=== PATIENT | male | born 1955 | race Caucasian/White ===

== ENCOUNTER 2018-07-15 01:31 | Emergency (ER) | payer MEDICAID ==
[~2018-07-15 01:31] MED LIST: TDAP Vaccine 0.5 mL Syr IM ONE
--- NOTE | 2018-07-15 05:50 | ED PDOC ---
Arrival/HPI - General Chief Complaint: Trauma Time Seen by Provider: 07/15/18 05:43 Historian: Patient - History of Present Illness Narrative History of Present Illness (Text): 07/15/18 05:50 62 year old male, whose past medical history includes CAD, COPD, and Hypertension, presents to the emergency department with head injury. Patient states he was at work when he became dizzy and fell face-first unto a desk. He states he then got up and felt dizzy again and fell backwards and hit his head on a metal display case. Patient began feeling pain and bleeding. He reports using coffee grounds to slow the bleeding, placing them on his cheek & the back of his head. Patient denies any current dizziness, shortness of breath, chest pain, leg pain, or any other complaints. Time/Duration: Prior to Arrival Symptom Course: Unchanged Quality: Throbbing Severity Level: Moderate Activities at Onset: Rest Context: Work Past Medical History - Provider Review Nursing Documentation Reviewed: Yes - Travel History Have you recently traveled outside [place] w/in the past 3 mons?: No Family/Social History - Physician Review Nursing Documentation Reviewed: Yes Family/Social History: No Known Family HX Allergies/Home Meds Allergies/Adverse Reactions: Allergies No Known Allergies Allergy (Verified 07/15/18 12:44) Review of Systems - Physician Review All systems were reviewed & negative as marked: Yes - Review of Systems Respiratory: absent: SOB Cardiovascular: absent: Chest Pain, Calf Pain Neurological: absent: Dizziness Physical Exam Temperature: Afebrile Blood Pressure: Normal Pulse: Regular Appearance: Positive for: Non-Toxic, Comfortable Mental Status: Positive for: Alert and Oriented X 3 - Systems Exam Head: Present: Contusion, Abrasion (Skin avulsion tear noted near L yazidi), Laceration (2.0cm laceration present near left side of occiput. ) Pupils: Present: PERRL Extroacular Muscles: Present: EOMI Conjunctiva: Present: Normal Mouth: Present: Moist Mucous Membranes Neck: Present: Normal Range of Motion Respiratory/Chest: Present: Clear to Auscultation, Good Air Exchange. No: Respiratory Distress, Accessory Muscle Use Cardiovascular: Present: Regular Rate and Rhythm, Normal S1, S2. No: Murmurs Abdomen: No: Tenderness, Distention, Peritoneal Signs Back: Present: Normal Inspection Upper Extremity: Present: Normal Inspection. No: Cyanosis, Edema Lower Extremity: Present: Normal Inspection. No: Edema Neurological: Present: GCS=15, CN II-XII Intact, Speech Normal Skin: Present: Warm, Dry, Normal Color. No: Rashes Psychiatric: Present: Alert, Oriented x 3, Normal Insight, Normal Concentration Medical Decision Making ED Course and Treatment: 07/15/18 06:22 Impression: 62 year old male presents with head injury Plan: --Labs --Dermabond -- CT Head -- CT C-Spine --CXR --EKG -- Reassess and disposition Prior Visits: Notes and results from previous visits were reviewed. Progress Notes: Stapled placed with minor difficulty with Dermabond applied to skin avulsion tear. Patient desiring to go home. He is advised to follow up with PCP in 1-2 days for reevaluation of wound and removal of stapled. He is able to ambulate without assistance and tolerating PO. He is stable for discharge. PROCEDURE: LACERATION REPAIR Performed by the emergency provider Location: left occipital region Length: 3 cm Description: clean wound edges Distal CMS: Normal. No deficits. Neurovascularly intact. Anesthesia: Lidocaine 1% Preparation: The wound was cleaned with NS and Betadyne. The area was prepped and draped in the usual sterile fashion. Exploration: The wound was explored and no foreign bodies were found. Procedure: The wound was closed with falguni. There was good approximation. In total, 3 were used. Post-Procedure: Good closure and hemostasis. The patient tolerated the procedure well and there were no complications. CSM remains intact. Post procedure dressing applied. - Lab Interpretations Lab Results: 07/15/18 02:45 07/15/18 02:45 Lab Results 07/15/18 02:45: PT 12.8 H, INR 1.12, APTT 31.4 07/15/18 02:45: Sodium 138, Potassium 4.4, Chloride 104, Carbon Dioxide 24, Anion Gap 14, BUN 13, Creatinine 0.6 L, Est GFR ( Amer) > 60, Est GFR (Non-Af Amer) > 60, Random Glucose 133 H, Calcium 10.0, Total Bilirubin 0.8, AST 65 H, ALT 42, Alkaline Phosphatase 83, Total Creatine Kinase 229, Total Protein 8.0, Albumin 4.1, Globulin 3.9, Albumin/Globulin Ratio 1.1 07/15/18 02:45: WBC 11.4 H, RBC 5.09, Hgb 15.4, Hct 44.8, MCV 88.0, MCH 30.3, MCHC 34.4, RDW 13.0, Plt Count 237, MPV 10.6, Gran % 72.5 H, Lymph % (Auto) 19.8 L, Maury % (Auto) 6.6 H, Eos % (Auto) 0.8 L, Baso % (Auto) 0.3, Gran # 8.24 H, Lymph # (Auto) 2.3, Maury # (Auto) 0.8 H, Eos # (Auto) 0.1, Baso # (Auto) 0.03 I have reviewed the lab results: Yes - Scribe Statement The provider has reviewed the documentation as recorded by the Scribe Cain Godoy Provider Scribe Attestation: All medical record entries made by the Scribe were at my direction and personally dictated by me. I have reviewed the chart and agree that the record accurately reflects my personal performance of the history, physical exam, medical decision making, and the department course for this patient. I have also personally directed, reviewed, and agree with the discharge instructions and disposition. Disposition/Present on Arrival - Present on Arrival Any Indicators Present on Arrival: No History of DVT/PE: No History of Uncontrolled Diabetes: No Urinary Catheter: No History of Decub. Ulcer: No - Disposition Have Diagnosis and Disposition been Completed?: No Diagnosis: Fall, Traumatic hematoma of head, Occipital scalp laceration Disposition: HOME/ ROUTINE Disposition Time: 05:59 Patient Plan: Discharge Condition: STABLE Discharge Instructions (ExitCare): Wound Care (DC), Preventing Falls Print Language: LATVIAN Additional Instructions: All medical record entries made by the Scribe were at my direction and personally dictated by me. I have reviewed the chart and agree that the record accurately reflects my personal performance of the history, physical exam, medical decision making, and the department course for this patient. I have also personally directed, reviewed, and agree with the discharge instructions and disposition. Referrals: Fiona Castaneda MD [Medical Doctor] - Follow up with primary [facility] [Outside] - Follow up with primary Forms: [facility] (Slovak)
[2018-07-15 06:28] LABS: ALB/GLOB RATIO 1.1 (1.1-1.8); ALBUMIN 4.1 g/dL (3.0-4.8); ALT/SGPT 42 U/L (7-56); AST/SGOT 65 U/L (17-59); BLOOD UREA NITROGEN 13 mg/dL (7-21); GFR NON-AFRICAN AMERICAN > 60
[2018-07-15 06:29] LABS: BASO # 0.03 K/mm3 (0.0-2.0); BASO % 0.3 % (0.0-3.0); EOS # 0.1 (0.0-0.7); EOS % 0.8 % (1.5-5.0); GRAN # 8.24 (1.4-6.5); GRAN % 72.5 % (50.0-68.0); HEMOGLOBIN 15.4 g/dL (14.0-18.0); LYMPH # 2.3 (1.2-3.4); LYMPH % 19.8 % (22.0-35.0); MEAN CORPUSCULAR HEMOGLOBIN 30.3 pg (25.0-35.0); MEAN CORPUSCULAR HGB CONC 34.4 g/dl (31.0-37.0); MEAN PLATELET VOLUME 10.6 fl (7.0-11.0); MONO # 0.8 (0.1-0.6); MONO % 6.6 % (1.0-6.0); RBC 5.09 10^6/uL (3.5-6.1); WHITE BLOOD COUNT 11.4 10^3/uL (4.5-11.0)
[2018-07-15 06:32] LABS: INR 1.12; PARTIAL THROMBOPLASTIN TIME 31.4 Seconds (25.1-36.5); PROTHROMBIN TIME 12.8 SECONDS (9.4-12.5)
[2018-07-15] MEDS ORDERED: Bacitracin 500 Units/gm Oint Foilpak UD ONE (06:33)
--- NOTE | 2018-07-15 08:14 | CT ---
Date of service: 07/15/2018 PROCEDURE: CT HEAD WITHOUT CONTRAST. HISTORY: injury/fall/laceration COMPARISON: None available. TECHNIQUE: Axial computed tomography images were obtained through the head/brain without intravenous contrast. Radiation dose: Total exam DLP = 844.6 mGy-cm. This CT exam was performed using one or more of the following dose reduction techniques: Automated exposure control, adjustment of the mA and/or kV according to patient size, and/or use of iterative reconstruction technique. FINDINGS: HEMORRHAGE: No intracranial hemorrhage. BRAIN: No mass effect or edema. Mild atrophy VENTRICLES: Unremarkable. No hydrocephalus. CALVARIUM: There is a left sided scalp hematoma with no associated fracture PARANASAL SINUSES: Unremarkable as visualized. No significant inflammatory changes. MASTOID AIR CELLS: Unremarkable as visualized. No inflammatory changes. OTHER FINDINGS: The report concurs with the preliminary [facility] report IMPRESSION: No acute intracranial findings
--- NOTE | 2018-07-15 08:18 | CT ---
Date of service: 07/15/2018 PROCEDURE: CT Cervical Spine without contrast HISTORY: injury/fall/laceration COMPARISON: None available. TECHNIQUE: Axial computed tomography images were obtained of the cervical spine without the use of intravenous contrast. Coronal and sagittal reformatted images were created and reviewed. Radiation dose: Total exam DLP = 500.49 mGy-cm. This CT exam was performed using one or more of the following dose reduction techniques: Automated exposure control, adjustment of the mA and/or kV according to patient size, and/or use of iterative reconstruction technique. FINDINGS: VERTEBRAE: No fracture. Normal alignment. No destructive bony lesion. DISCS/SPINAL CANAL/NEURAL FORAMINA: Multilevel degenerative changes are seen with disc space narrowing, large anterior osteophytes and degenerative endplate changes. Facet arthropathy is also seen. Changes are most severe at C6-7 where there is moderate to severe stenosis PARASPINAL SOFT TISSUES: Unremarkable. OTHER FINDINGS: The report concurs with the preliminary [facility] report IMPRESSION: No acute fracture
--- NOTE | 2018-07-15 08:50 | RAD ---
Date of service: 07/15/2018 HISTORY: injury/fall/laceration COMPARISON: No prior. FINDINGS: LUNGS: The lungs are well inflated. There is moderate pulmonary venous congestion. PLEURA: No pleural effusions or pneumothorax. CARDIOVASCULAR: The heart is normal in size. No aortic atherosclerotic calcification present. OSSEOUS STRUCTURES: Within normal limits for the patient's age. VISUALIZED UPPER ABDOMEN: Normal. OTHER FINDINGS: None. IMPRESSION: No acute findings.
== END 2018-07-15 09:19 | disposition home or self-care (01) ==
LOC: ED 01:31
DX: S01.01XA Laceration without foreign body of scalp, initial encounter (principal); W18.39XA Other fall on same level, initial encounter; Y92.89 Other specified places as the place of occurrence of the external cause; Y99.0 Civilian activity done for income or pay; I25.10 Atherosclerotic heart disease of native coronary artery without angina pectoris; I10 Essential (primary) hypertension

== ENCOUNTER 2018-07-19 18:13 | Emergency (ER) | payer MEDICAID ==
[2018-07-19 20:03] VITALS: BMI 34.9
[2018-07-19 20:04] VITALS: BP 104/62; PULSE 79; RESP 18; TEMP 98.3; O2SAT 95
--- NOTE | 2018-07-19 22:56 | ED PDOC ---
Arrival/HPI - General Chief Complaint: Suture/Staple Removal Historian: Patient - History of Present Illness Narrative History of Present Illness (Text): 07/19/18 23:24 62 year old male, with a past medical history of scalp laceration, presents to the emergency department for removal of falguni. Patient's falguni were placed 4 days ago. Patient denies any erythema or drainage. Patient denies any fevers, chills, nausea, vomiting, headache, dizziness, or any other complaint. Time/Duration: < week (falguni placed 4 days prior) Symptom Onset: Sudden Symptom Course: Improving Context: Work Past Medical History - Provider Review Nursing Documentation Reviewed: Yes - Infectious Disease Hx of Infectious Diseases: None - Cardiac Hx Cardiac Disorders: Yes Hx Hypertension: Yes - Pulmonary Hx Respiratory Disorders: No - Neurological Hx Neurological Disorder: No - HEENT Hx HEENT Disorder: No - Renal Hx Renal Disorder: No - Endocrine/Metabolic Hx Endocrine Disorders: No - Hematological/Oncological Hx Blood Disorders: No - Integumentary Hx Dermatological Disorder: No - Musculoskeletal/Rheumatological Hx Musculoskeletal Disorders: No - Gastrointestinal Hx Gastrointestinal Disorders: No - Genitourinary/Gynecological Hx Genitourinary Disorders: No - Psychiatric Hx Psychophysiologic Disorder: No Hx Substance Use: No Family/Social History - Physician Review Nursing Documentation Reviewed: Yes Family/Social History: No Known Family HX Smoking Status: Never Smoked Hx Alcohol Use: No Hx Substance Use: No Allergies/Home Meds Allergies/Adverse Reactions: Allergies No Known Allergies Allergy (Verified 07/19/18 20:03) Home Medications: Home Meds Medication Instructions Recorded Confirmed Unobtainable 07/19/18 07/19/18 Review of Systems - Review of Systems Constitutional: absent: Fevers, Night Sweats Skin: Laceration (Sutured ). absent: Other (No erythema; no drainage) Neurological: absent: Headache, Dizziness Physical Exam Vital Signs Reviewed: Yes Vital Signs Temp Pulse Resp BP Pulse Ox 07/19/18 20:03 98.3 F 79 18 104/62 95 Temperature: Afebrile Blood Pressure: Normal Pulse: Regular Respiratory Rate: Normal Appearance: Positive for: Well-Appearing, Non-Toxic, Comfortable Pain Distress: None Mental Status: Positive for: Alert and Oriented X 3 - Systems Exam Head: Present: Normocephalic, Laceration (3 falguni to the left occipital region; no drainage) Pupils: Present: PERRL Extroacular Muscles: Present: EOMI Conjunctiva: Present: Normal Mouth: Present: Moist Mucous Membranes Neck: Present: Normal Range of Motion Respiratory/Chest: Present: Clear to Auscultation, Good Air Exchange. No: Respiratory Distress, Accessory Muscle Use Cardiovascular: Present: Regular Rate and Rhythm, Normal S1, S2. No: Murmurs Abdomen: No: Tenderness, Distention, Peritoneal Signs Back: Present: Normal Inspection Upper Extremity: Present: Normal Inspection. No: Cyanosis, Edema Lower Extremity: Present: Normal Inspection. No: Edema Neurological: Present: GCS=15, CN II-XII Intact, Speech Normal Skin: Present: Warm, Dry, Normal Color. No: Rashes Psychiatric: Present: Alert, Oriented x 3, Normal Insight, Normal Concentration Medical Decision Making ED Course and Treatment: 07/19/18 23:31 Impression: 62 year old male presents for suture removal. Plan: -- Reassess and disposition Prior Visits: Notes and results from previous visits were reviewed. Progress Notes: 07/19/18 23:31 Spoke with patient and explained that it is too early to take staple out, recommending patient follow up with PMD or ER in 4-5 days. - Scribe Statement The provider has reviewed the documentation as recorded by the Fernando Godoy Provider Scribe Attestation: All medical record entries made by the Scribe were at my direction and personally dictated by me. I have reviewed the chart and agree that the record accurately reflects my personal performance of the history, physical exam, medical decision making, and the department course for this patient. I have also personally directed, reviewed, and agree with the discharge instructions and disposition. Disposition/Present on Arrival - Present on Arrival Any Indicators Present on Arrival: No History of DVT/PE: No History of Uncontrolled Diabetes: No Urinary Catheter: No History of Decub. Ulcer: No History Surgical Site Infection Following: None - Disposition Have Diagnosis and Disposition been Completed?: Yes Diagnosis: Visit for wound check Disposition: HOME/ ROUTINE Disposition Time: 20:30 Condition: GOOD Discharge Instructions (ExitCare): Laceration Repair With [facility] (DC) Additional Instructions: DARI CHINCHILLA, thank you for letting us take care of you today. The emergency medical care you received today was directed at your acute symptoms. If you were prescribed any medication, please fill it and take as directed. It may take several days for your symptoms to resolve. Return to the Emergency Department if your symptoms worsen, do not improve, or if you have any other problems. Please contact your doctor or call one of the physicians/clinics you have been referred to that are listed on the Patient Visit Information form that is included in your discharge packet. Bring any paperwork you were given at discharge with you along with any medications you are taking to your follow up visit. Our treatment cannot replace ongoing medical care by a primary care provider outside of the emergency department. Thank you for allowing the [facility] team to be part of your care today. Keep area clean and dry at all times. Follow up with your primary care doctor or the emergency room in 4-5 days for staple removal. Referrals: [facility], [Non-Staff] - Follow up with primary Forms: [employer] (Urdu)
== END 2018-07-19 21:07 | disposition home or self-care (01) ==
LOC: ED 18:13
DX: Z51.89 Encounter for other specified aftercare (principal)